=== PATIENT | female | born 1945 | race Caucasian/White ===

== ENCOUNTER 2023-08-08 09:56 | Emergency (ER) | payer OTHER ==
[2023-08-08] MEDS ORDERED: Ondansetron PF 4 MG/2 ML Vial ONE ×2 (10:31→12:06)
[2023-08-08] MEDS ORDERED: Sodium Chloride 0.9% 500 ML ONE (10:31)
[2023-08-08 11:21] LABS: Band 2 % (5-11); Hematocrit 36.3 % (36.0-47.0); Hemoglobin 12.3 g/dL (12.0-16.0); Hypochromia SLIGHT = 6-15 cells (100X) (0-5/hpf); Lymphocytes 16 % (21-51); MDiff Complete? YES; Mean Corpuscular HGB CONC 33.7 g/dL (32.0-36.0); Mean Corpuscular Hemoglobin 30.7 pg (27.0-31.0); Mean Corpuscular Volume 91.1 fl (78.0-98.0); Mean Platelet Volume 7.4 fL (7.4-10.4); Monocytes 7 % (0-10); Neutrophil 75 % (42-75); Platelet Adequacy Comment Appears Adequate; Platelet Count 244 10x3/uL (130-400); Red Blood Cell (RBC) Count 3.99 mill/uL (4.20-5.40)
[2023-08-08 11:22] LABS: ALT (SGPT) 17 U/L (8-55); AST (SGOT) 21 U/L (5-34); Albumin 4.3 g/dL (3.4-4.8); Alkaline Phosphatase 86 U/L (40-110); Anion Gap 22 mmol/L (10-20); BUN (Urea Nitrogen) 22 mg/dL (9.8-20.1); Bilirubin, Total 0.7 mg/dL (0.2-1.2); Calc. Creatinine Clearance 0 mL/min (70-130); Calcium 9.4 mg/dL (7.8-10.44); Carbon Dioxide 18 mmol/L (23-31); Chloride 98 mmol/L (98-107); Estimated GFR 46; Globulin 2.3 g/dL (2.4-3.5); Glucose 196 mg/dL (83-110); Lipase 25 U/L (8-78); Potassium 3.6 mmol/L (3.5-5.1); Protein, Total 6.6 g/dL (5.8-8.1); Sodium 134 mmol/L (136-145)
[2023-08-08 11:25] LABS: Troponin I Less than 0.010 ng/mL (< 0.028)
[2023-08-08 11:53] LABS: Bilirubin Negative (Negative); Blood, Urine Negative (Negative); Glucose, Urine (Dipstick) Negative (Negative); Ketone, Urine 15 mg/dL (Negative); Leukocyte Moderate (Negative); Nitrite Negative (Negative); Protein, Urine (Dipstick) Negative (Neg-Trace); Urobilinogen 0.2 mg/dL (Less than 2); pH, Urine 6.5 (5.0-9.0)
[2023-08-08 11:55] LABS: Clarity Hazy (Clear)
[2023-08-08 11:56] LABS: Bacteria/HPF 2+ HPF (None Seen); CAUTI Indications for Culture Dysuria,urgency,freq; RBC/HPF 0-3 HPF (0-3); WBC/HPF 21-50 HPF (0-3)
[2023-08-08 11:58] LABS: Urine Culture Reflex Yes Yes
[2023-08-08] MEDS ORDERED: Dicyclomine 20 MG/2 ML VIAL ONE (12:06)
[2023-08-08] MEDS ORDERED: Dicyclomine 10 MG CAP ONE (12:09)
[2023-08-08] MEDS ORDERED: cefTRIAXone (ROCEPHIN) 1 GM VIAL ONE (12:21)
[2023-08-08] MEDS ORDERED: Sodium Chloride 0.9% 100 ML ONE (12:21)
== END 2023-08-08 12:58 | disposition home or self-care (01) ==
LOC: MADERS 09:56
DX: N39.0 Urinary tract infection, site not specified (principal); E86.0 Dehydration; R11.2 Nausea with vomiting, unspecified; I10 Essential (primary) hypertension; E11.9 Type 2 diabetes mellitus without complications; E03.9 Hypothyroidism, unspecified; K21.9 Gastro-esophageal reflux disease without esophagitis; I25.10 Atherosclerotic heart disease of native coronary artery without angina pectoris; E78.00 Pure hypercholesterolemia, unspecified; Z95.5 Presence of coronary angioplasty implant and graft; Z86.73 Personal history of transient ischemic attack (TIA), and cerebral infarction without residual deficits; Z79.82 Long term (current) use of aspirin; Z79.899 Other long term (current) drug therapy
CPT/HCPCS: 74018; 80053; 81001; 83605; 83690; 84484; 85025; 87086; 87804; 93005; 96361; 96365; 96375; J0696; J2405; J3490; J7030

== ENCOUNTER 2024-06-19 14:57 | Emergency (ER) | payer MEDICARE, OTHER ==
[~2024-06-19 14:57] MED LIST: GASTROGRAFIN 30 ML BOT ONE
[2024-06-19] MEDS ORDERED: Dicyclomine 20 MG/2 ML VIAL ONE (15:43)
[2024-06-19] MEDS ORDERED: Ondansetron PF 4 MG/2 ML Vial ONE ×2 (15:44→19:21)
[2024-06-19] MEDS ORDERED: Lactated Ringer's 1,000 ML ONE ×2 (15:44→21:50)
[2024-06-19 16:02] LABS: #Monocytes 0.3 thou/uL (0.11-0.59); #Neutrophils 5.1 thou/uL (1.40-6.50); %Basophils 0.6 % (0.0-1.0); %Eosinophils 0.4 % (0.0-10.0); %Lymphocytes 15.2 % (21.0-51.0); %Monocytes 4.1 % (0.0-10.0); %Neutrophils 79.7 % (42.0-75.0); Hematocrit 35.5 % (36.0-47.0); Hemoglobin 11.5 g/dL (12.0-16.0); Mean Corpuscular HGB CONC 32.3 g/dL (32.0-36.0); Mean Corpuscular Hemoglobin 30.7 pg (27.0-31.0); Platelet Count 241 10x3/uL (130-400); RBC Distribution Width 12.7 % (11.5-14.5); Red Blood Cell (RBC) Count 3.73 mill/uL (4.20-5.40); White Blood Cell (WBC) Count 6.4 10x3/uL (4.8-10.8)
[2024-06-19 16:14] LABS: ALT (SGPT) 16 U/L (8-55); AST (SGOT) 26 U/L (5-34); Alkaline Phosphatase 76 U/L (40-110); Anion Gap 22 mmol/L (10-20); BUN (Urea Nitrogen) 29 mg/dL (9.8-20.1); Bilirubin, Total 0.5 mg/dL (0.2-1.2); Calc. Creatinine Clearance 0 mL/min (70-130); Calcium 9.6 mg/dL (7.8-10.44); Carbon Dioxide 18 mmol/L (23-31); Chloride 100 mmol/L (98-107); Estimated GFR 51; Globulin 3.1 g/dL (2.4-3.5); Glucose 169 mg/dL (83-110); Lipase 24 U/L (8-78); Magnesium 1.9 mg/dL (1.6-2.6); Potassium 4.1 mmol/L (3.5-5.1); Protein, Total 7.1 g/dL (5.8-8.1); Sodium 136 mmol/L (136-145)
[2024-06-19 18:30] LABS: Bilirubin Negative (Negative); Blood, Urine Trace (Negative); Glucose, Urine (Dipstick) Negative (Negative); Ketone, Urine 40 mg/dL (Negative); Leukocyte Small (Negative); Nitrite Negative (Negative); Protein, Urine (Dipstick) 30 mg/dL (Neg-Trace); Urobilinogen 0.2 mg/dL (Less than 2); pH, Urine 5.5 (5.0-9.0)
[2024-06-19 18:33] LABS: Clarity Hazy (Clear); Specific Gravity, Urine 1.007 (1.002-1.036)
[2024-06-19 18:35] LABS: Bacteria/HPF Rare-Few HPF (None Seen); CAUTI Indications for Culture Pelvic or flank pain; RBC/HPF 0-3 HPF (0-3); Squamous Epithelial 0-3 HPF (0-3); Urine Culture Reflex Yes Yes
[2024-06-19 19:34] LABS: Anion Gap 24 mmol/L (10-20); BUN (Urea Nitrogen) 25 mg/dL (9.8-20.1); Calc. Creatinine Clearance 0 mL/min (70-130); Calcium 9.6 mg/dL (7.8-10.44); Carbon Dioxide 16 mmol/L (23-31); Chloride 100 mmol/L (98-107); Estimated GFR 54; Glucose 121 mg/dL (83-110); Potassium 4.6 mmol/L (3.5-5.1); Sodium 135 mmol/L (136-145)
[2024-06-19] MEDS ORDERED: Prochlorperazine 10 MG/2 ML VIAL ONE (20:00)
[2024-06-19] MEDS ORDERED: Morphine 4 MG/ML VIAL ONE (20:01)
[2024-06-19 20:32] LABS: Bicarbonate (HCO3v) 20.9 mmol/L (22.0-28.0); CO2 Tension (PvCO2) 25.6 mmHg (42.0-51.0); Calcium, Ionized 1.09 mmol/L (1.15-1.33); Chloride 102 mmol/L (98-107); Hemoglobin - Calc 10.1 g/dL (12.0-16.0); Sodium 133 mmol/L (138-145); T. Carbon Dioxide 21.7 mmol/L (22.0-28.0); vO2 Saturation-calc 95.5 % (60.0-85.0)
[2024-06-19] MEDS ORDERED: hydrALAZINE 20 MG/ML VIAL ONE (21:49)
[2024-06-20 15:16] LABS: Campy jejuni + coli by PCR Negative (Negative); STEC Shiga Toxin 1+2 Negative (Negative); Salmonella spp. by PCR Negative (Negative); Shigella spp + EIEC by PCR Negative (Negative)
== END 2024-06-19 22:10 | disposition short-term general hospital (02) ==
LOC: MADERS 14:57
DX: K52.9 Noninfective gastroenteritis and colitis, unspecified (principal); E87.20 Acidosis, unspecified; E11.9 Type 2 diabetes mellitus without complications; I10 Essential (primary) hypertension; E78.5 Hyperlipidemia, unspecified
CPT/HCPCS: 74177; 80053; 81001; 82010; 82330; 82803; 83605; 83690; 83735; 85025; 87086; 87324; 87328; 87329; 87400; 87426; 87449; 87505; 94760; 96372; 96374; 96375; 96376; J0360; J0780; J2272; J2405; J7120; Q9963